=== PATIENT | female | born 1990 | race Two or more races ===

== ENCOUNTER 2019-11-06 14:45 | Inpatient (IN) | payer OTHER ==
[~2019-11-06] VITALS: Ht 170.2 cm; Wt 73.5 kg
[2019-11-12] MEDS ORDERED: ASPIR 8181 MG PO (07:49)
[2019-11-12] MEDS ORDERED: PRENA1 CHEW TA1.4 MG PO (07:51)
[2019-11-12] MEDS ORDERED: SINGULAIR10 MG PO (07:53)
[2019-11-12] MEDS ORDERED: CLARITIN10 M1 PO (07:55)
== END 2019-11-14 12:50 | disposition home or self-care (01) | DRG 807 ==
LOC: SURG-SUITE 11-12 06:20 → LDR 11-12 06:20 → SURG-SUITE 11-12 17:27 → OB/GYN 11-18 14:45
PROVIDERS: ADMIT Obstetrics & Gynecology
PROC: 10E0XZZ Delivery of Products of Conception, External Approach (ICD-10-PCS; principal; 2019-11-12)
PROC: 0UQGXZZ Repair Vagina, External Approach (ICD-10-PCS; 2019-11-12)
PROC: 10907ZC Drainage of Amniotic Fluid, Therapeutic from Products of Conception, Via Natural or Artificial Opening (ICD-10-PCS; 2019-11-12)
PROC: 3E033VJ Introduction of Other Hormone into Peripheral Vein, Percutaneous Approach (ICD-10-PCS; 2019-11-12)
PROC: 4A1HXCZ Monitoring of Products of Conception, Cardiac Rate, External Approach (ICD-10-PCS; 2019-11-12)
DX: O71.4 Obstetric high vaginal laceration alone (principal); Z37.0 Single live birth; Z3A.39 39 weeks gestation of pregnancy

== ENCOUNTER 2022-07-05 08:08 | Inpatient (IN) | payer OTHER ==
[~2022-07-05] VITALS: Ht 170.2 cm; Wt 74.8 kg
[~2022-07-05 08:08] MED LIST: ASPIR 8181 MG PO; CLARITIN10 M1 PO; PRENA1 CHEW TA1.4 MG PO; SINGULAIR10 MG PO
[2022-07-07] MEDS ORDERED: NAPR500T14 PO (08:56)
== END 2022-07-07 14:01 | disposition home or self-care (01) | DRG 807 ==
LOC: LDR 08:08 → OB/GYN 08:08 → LDR 09:12 → OB/GYN 19:20
PROVIDERS: ADMIT Obstetrics & Gynecology; ATTEND Obstetrics & Gynecology
PROC: 10E0XZZ Delivery of Products of Conception, External Approach (ICD-10-PCS; principal; 2022-07-05)
PROC: 0HQ9XZZ Repair Perineum Skin, External Approach (ICD-10-PCS; 2022-07-05)
PROC: 4A1HXCZ Monitoring of Products of Conception, Cardiac Rate, External Approach (ICD-10-PCS; 2022-07-05)
DX: O70.0 First degree perineal laceration during delivery (principal); Z3A.37 37 weeks gestation of pregnancy; Z37.0 Single live birth; Z20.822 Contact with and (suspected) exposure to COVID-19